=== PATIENT | male | born 1980 | race Caucasian/White ===

== ENCOUNTER 2017-09-16 09:42 | Emergency (ER) | payer MEDICAID, OTHER ==
[~2017-09-16] VITALS: Ht 188 cm; Wt 136.1 kg
[~2017-09-16 09:42] MED LIST: GUAI177L4 PO; [UNRECOGNIZED DRUG - REMARK]
--- NOTE | 2017-09-16 10:38 | NUR ---
Patient discharged to home in stable conditon. Written and verbal after care instructions given to patient and family. Patient & family verbalized understanding of instructions.
== END 2017-09-16 10:39 | disposition home or self-care (01) ==
LOC: ER 09:42
DX: S22.31XA Fracture of one rib, right side, initial encounter for closed fracture (principal); Z88.6 Allergy status to analgesic agent; X58.XXXA Exposure to other specified factors, initial encounter; Y93.89 Activity, other specified; Y92.89 Other specified places as the place of occurrence of the external cause; Y99.8 Other external cause status
CPT/HCPCS: 71010; A4663

== ENCOUNTER 2017-12-22 23:15 | Emergency (ER) | payer OTHER ==
[~2017-12-22] VITALS: Ht 188 cm; Wt 135.2 kg
--- NOTE | 2017-12-23 00:02 | NUR ---
Strep swab collected and sent
--- NOTE | 2017-12-23 01:05 | NUR ---
Pt stable for discharge per MD. Pt given ACI. Pt verbalized understanding of dc instructions. Pt ambulated out of ER with steady gait.
[2017-12-23 01:44] VITALS: BP 154/85
== END 2017-12-23 01:05 | disposition home or self-care (01) ==
LOC: ER 23:18
DX: J02.9 Acute pharyngitis, unspecified (principal); B34.9 Viral infection, unspecified; Z88.5 Allergy status to narcotic agent
CPT/HCPCS: 36415; 86403; 87070; A4663

== ENCOUNTER 2018-10-04 13:02 | Emergency (ER) | payer OTHER ==
[~2018-10-04] VITALS: Ht 188 cm; Wt 138.3 kg
--- NOTE | 2018-10-04 14:29 | NUR ---
Patient discharged to home in stable conditon. Written and verbal after care instructions given. Patient verbalizes understanding of instructions.
[2018-10-04 14:30] VITALS: BP 136/80
== END 2018-10-04 14:37 | disposition home or self-care (01) ==
LOC: ER 13:03
DX: J30.9 Allergic rhinitis, unspecified (principal); R05 Cough; Z90.89 Acquired absence of other organs; Z88.6 Allergy status to analgesic agent
CPT/HCPCS: 71045; A4663